=== PATIENT | male | born 1965 | race Caucasian/White ===

== ENCOUNTER 2023-09-17 15:00 | Inpatient (IN) ==
[2023-09-17 15:28] LABS: ABS Basophils 0.1 10^3/uL (0.0-0.1); ABS Eosinophils 0.2 10^3/uL (0.0-0.5); ABS Lymphocytes 2.1 10^3/uL (1.0-4.8); ABS Monocytes 1.2 10^3/uL (0.0-1.1); ABS Neutrophils 8.5 10^3/uL (1.5-7.6); ABS Nucleated RBC 0.01 10^3/ul; Hematocrit 42.4 % (38-53); Hemoglobin 14.5 g/dL (13.2-16.3); Lymphocyte % 17.4 %; Mean Corpuscular Hemoglobin 29.5 pg (27-33); Mean Corpuscular Hgb Conc 34.2 g/dL (31-36); Mean Corpuscular Volume 86.3 fL (80-97); Mean Platelet Volume 8.6 fL (7.5-11.2); Nucleated Red Blood Cells % 0.1 %/100WBC (0.0-0.8); Platelet Count 197 10^3/uL (150-450); Red Blood Count 4.92 10^6/uL (4.06-5.63); Red Cell Distribution Width 14.3 % (12-17); White Blood Count 12.2 10^3/uL (3.6-10.2)
[2023-09-17 15:41] LABS: INR 1.14 (0.83-1.13)
[2023-09-17 15:49] LABS: Albumin/Globulin Ratio 1.1 (1-3); Creatinine, Serum 1.16 mg/dL (0.67-1.17); Globulin 3.6 g/dL (2-4); Potassium 3.7 mmol/L (3.5-5.0); Total Bilirubin 0.6 mg/dL (0.2-1.0); Total Protein 7.6 g/dL (6.4-8.9)
[2023-09-17] MEDS ORDERED: Iohexol 350 (CONTRAST) 500 ML MDV IV ONE (15:52)
[2023-09-17 16:48] LABS: High Sensitivity Troponin 1 Hr 377 pg/mL (<20)
[2023-09-17] MEDS: Heparin DRIP 25,000 UNITS BAG 25,000 UNITS/250 ML BAG IV SCH (17:25)
[2023-09-17] MEDS: Heparin 5000 UNITS/ML 1 mL VIAL IV PRN (17:27)
[2023-09-17 17:30] LABS: ABS Basophils 0.1 10^3/uL (0.0-0.1); ABS Eosinophils 0.3 10^3/uL (0.0-0.5); ABS Lymphocytes 2.3 10^3/uL (1.0-4.8); ABS Monocytes 1.2 10^3/uL (0.0-1.1); ABS Neutrophils 8.2 10^3/uL (1.5-7.6); Eosinophil % 2.4 %; Hematocrit 41.4 % (38-53); Hemoglobin 14.1 g/dL (13.2-16.3); Lymphocyte % 18.9 %; Mean Corpuscular Hgb Conc 34.1 g/dL (31-36); Mean Platelet Volume 8.5 fL (7.5-11.2); Platelet Count 199 10^3/uL (150-450); Red Blood Count 4.87 10^6/uL (4.06-5.63); Red Cell Distribution Width 14.5 % (12-17); White Blood Count 11.9 10^3/uL (3.6-10.2)
[2023-09-18 06:27] LABS: ABS Basophils 0.1 10^3/uL (0.0-0.1); ABS Eosinophils 0.4 10^3/uL (0.0-0.5); ABS Lymphocytes 2.3 10^3/uL (1.0-4.8); ABS Neutrophils 5.2 10^3/uL (1.5-7.6); ABS Nucleated RBC 0.01 10^3/ul; Eosinophil % 4.3 %; Hemoglobin 13.9 g/dL (13.2-16.3); Mean Corpuscular Hemoglobin 29.3 pg (27-33); Mean Corpuscular Hgb Conc 34.6 g/dL (31-36); Mean Corpuscular Volume 84.7 fL (80-97); Nucleated Red Blood Cells % 0.2 %/100WBC (0.0-0.8); Platelet Count 179 10^3/uL (150-450); Red Blood Count 4.72 10^6/uL (4.06-5.63); Red Cell Distribution Width 14.2 % (12-17); White Blood Count 8.9 10^3/uL (3.6-10.2)
[2023-09-18 06:48] LABS: Calcium 8.5 mg/dL (8.6-10.3); Creatinine, Serum 1.04 mg/dL (0.67-1.17); Magnesium 1.9 mg/dL (1.9-2.7); Potassium 3.2 mmol/L (3.5-5.0); eGFR CKD-EPI 83.2 (>60)
[2023-09-18] MEDS: Heparin 5000 UNITS/ML 1 mL VIAL IV PRN (07:07)
[2023-09-18] MEDS: Heparin DRIP 25,000 UNITS BAG 25,000 UNITS/250 ML BAG IV SCH ×2 (07:11→19:54)
[2023-09-18] MEDS: Amphetamine MIXED SALT 10mgTAB PO SCH ×3 (09:51→13:56)
[2023-09-18] MEDS ORDERED: Sulfur Hexaflouride MICROSPHR 25 MG VIAL ONE (10:32)
[2023-09-18] MEDS ORDERED: KCL 20 MEQ/100 ML IVPREMIX 20 MEQ/100 ML BAG IV SCH (15:00)
[2023-09-18] MEDS: Potassium Chlor 20 meq TAB.ER PO SCH ×2 (17:03→20:07)
[2023-09-18 20:12] LABS: High Sensitivity Troponin 3 Hr 49 pg/mL (<20)
[2023-09-19 05:54] LABS: ABS Eosinophils 0.5 10^3/uL (0.0-0.5); ABS Lymphocytes 1.9 10^3/uL (1.0-4.8); ABS Monocytes 0.9 10^3/uL (0.0-1.1); ABS Neutrophils 5.3 10^3/uL (1.5-7.6); ABS Nucleated RBC 0.01 10^3/ul; Eosinophil % 5.2 %; Hematocrit 40.3 % (38-53); Hemoglobin 13.8 g/dL (13.2-16.3); Lymphocyte % 21.7 %; Mean Corpuscular Hgb Conc 34.3 g/dL (31-36); Mean Corpuscular Volume 84.7 fL (80-97); Mean Platelet Volume 8.5 fL (7.5-11.2); Nucleated Red Blood Cells % 0.1 %/100WBC (0.0-0.8); Platelet Count 180 10^3/uL (150-450); Red Blood Count 4.76 10^6/uL (4.06-5.63); White Blood Count 8.6 10^3/uL (3.6-10.2)
[2023-09-19 06:45] LABS: Calcium 8.5 mg/dL (8.6-10.3); Creatinine, Serum 1.08 mg/dL (0.67-1.17); Potassium 3.5 mmol/L (3.5-5.0); eGFR CKD-EPI 79.5 (>60)
[2023-09-19] MEDS: Amphetamine MIXED SALT 10mgTAB PO SCH ×2 (08:58→15:06)
[2023-09-19] MEDS: Potassium Chlor 20 meq TAB.ER PO SCH ×2 (09:19→15:06)
[2023-09-19 15:03] VITALS: BP 137/71
== END 2023-09-19 16:00 | disposition home or self-care (01) | DRG 134 ==
LOC: EDHOLD 15:00 → ED 15:00 → OBSVTOIN 17:13 → MEDTELE 20:06
PROVIDERS: ADMIT Student in an Organized Health Care Education/Training Program; ATTEND Student in an Organized Health Care Education/Training Program